=== PATIENT | female | born 1975 | race Caucasian/White ===

== ENCOUNTER 2021-03-26 06:02 | Day surgery (SDC) | payer OTHER, SELFPAY ==
[~2021-03-26] VITALS: Ht 170.2 cm; Wt 98.4 kg
[2021-03-26] MEDS ORDERED: LIDOCAINE 1% 500 MG/50 ML VIAL ONE (07:04)
[2021-03-26] MEDS ORDERED: BUPIVACAINE-MPF/EPI 0.25% 30 ML VIAL INJ ONE (07:04)
[2021-03-26] MEDS ORDERED: DEXAMETHASONE 4 MG/ML VIAL ONE (07:43)
[2021-03-26] MEDS ORDERED: ROCURONIUM 50 MG/5 ML VIAL IV ONE (07:43)
[2021-03-26] MEDS ORDERED: SUGAMMADEX SODIUM 200 MG/2 ML VIAL IV ONE (07:43)
[2021-03-26] MEDS ORDERED: PROPOFOL 200 MG/20 ML VIAL IV ONE (07:43)
[2021-03-26] MEDS ORDERED: SEVOFLURANE 250 ML BTL INH ONE (07:43)
[2021-03-26] MEDS ORDERED: fentaNYL citrate 0.05 MG/ML VIAL ONE (07:43)
[2021-03-26] MEDS ORDERED: SUCCINYLCHOLINE CHLORIDE 200 MG/10 ML VIAL IVP ONE (07:43)
[2021-03-26] MEDS ORDERED: KETOROLAC 30 MG/ML VIAL ONE (07:43)
[2021-03-26] MEDS ORDERED: ONDANSETRON 4 MG/2 ML VIAL ONE (07:43)
[2021-03-26] MEDS ORDERED: ONDANSETRON 4 MG/2 ML VIAL IVP PRN (08:40)
[2021-03-26] MEDS ORDERED: HYDROmorphone PFS 2 MG/ML SYR ONE (08:56)
[2021-03-26] MEDS: HYDROmorphone 1 MG/ML AMP IVP PRN ×3 (08:59→09:19)
== END 2021-03-26 10:50 | disposition home or self-care (01) ==
LOC: MDS 06:02 → MMU 06:02 → MDS 10:50
PROVIDERS: ATTEND Surgery
DX: K64.0 First degree hemorrhoids (principal); K64.4 Residual hemorrhoidal skin tags; E03.9 Hypothyroidism, unspecified; Z79.899 Other long term (current) drug therapy; Z20.822 Contact with and (suspected) exposure to COVID-19
CPT/HCPCS: 46260; 71045; J0330; J1100; J1170; J1885; J2001; J2405; J2704; J3010; J3490; J7120; U0003